=== PATIENT | female | born 1985 | race American Indian/Alaskan Native ===

== ENCOUNTER 2016-08-06 21:59 | Emergency (ER) | payer OTHER ==
[2016-08-06 23:02] LABS: Basophils % (Auto) 0.7 % (0.0-1.8); Eosinophils % (Auto) 2.7 % (0.0-4.3); Hematocrit 39.7 % (30.3-42.9); Mean Corpuscular HGB Conc 33 % (30-34); Mean Corpuscular Hemoglobin 29 pg (28-32); Mean Corpuscular Volume 89 fl (79-97); Platelet Count 244 K/mm3 (140-440); Red Blood Count 4.47 M/mm3 (3.65-5.03); Red Cell Distribution Width 13.9 % (13.2-15.2); White Blood Count 7.5 K/mm3 (4.5-11.0)
[2016-08-06 23:27] LABS: Alanine Aminotransferase 11 units/L (7-56); Albumin 4.1 g/dL (3.9-5); Albumin/Globulin Ratio 1.3 %; Alkaline Phosphatase 55 units/L (35-129); BUN/Creatinine Ratio 12.85; Blood Urea Nitrogen 9 mg/dL (7-17); Calcium 8.9 mg/dL (8.4-10.2); Carbon Dioxide 24 mmol/L (22-30); Glucose 69 mg/dL (65-100); Lipase 26 units/L (13-60); Total Protein 7.2 g/dL (6.3-8.2)
[2016-08-06 23:28] LABS: Anion Gap 17 mmol/L; Chloride 103.5 mmol/L (98-107); Sodium 140 mmol/L (137-145)
[2016-08-07] MEDS ORDERED: TYLENOL PO ONE (04:38)
[2016-08-07 09:25] LABS: Bilirubin,Urine NEG (Negative); Blood,Urine NEG (Negative); Ketones,Urine NEG (Negative); Leukocyte Esterase,Urine NEG (Negative); Nitrite,Urine NEG (Negative); Protein,Urine <15 mg/dL mg/dL (Negative); RBC,Urine < 1.0 /HPF (0.0-6.0); Urobilinogen,Urine < 2.0 mg/dL (<2.0)
[2016-08-07 09:27] LABS: WBC,Urine < 1.0 /HPF (0.0-6.0)
--- NOTE | 2016-08-07 11:53 | Emergency Department Report ---
ED Abdominal Pain HPI - General Chief Complaint: Abdominal Pain Stated Complaint: BACK AND RIB PAIN Time Seen by Provider: 08/07/16 11:21 Source: patient Mode of arrival: Ambulatory Limitations: No Limitations - History of Present Illness MD Complaint: abdominal pain -: Gradual, days(s) Location: diffuse Radiation: none Migration to: no migration Severity: mild Severity scale (0 -10): 2 Quality: aching Consistency: intermittent Improves With: nothing Worsens With: nothing Associated Symptoms: denies: nausea, vomiting, diarrhea, fever, chills, constipation, dysuria, hematemesis, hematochezia, melena, hematuria, anorexia, syncope - Related Data Home Medications Medication Instructions Recorded Confirmed Last Taken ALBUTEROL Inhaler [Proair] 2 puff IH QID PRN 02/24/13 02/19/14 Unknown Previous Rx's Medication Instructions Recorded Last Taken Type Acetaminophen/Codeine 1 tab PO Q6H PRN #21 tab 02/20/14 Unknown Rx [Acetaminophen-Codeine #3 TAB] metroNIDAZOLE [Flagyl TAB] 500 mg PO BID #14 tablet 02/20/14 Unknown Rx Allergies Allergy/AdvReac Type Severity Reaction Status Date / Time raspberry Allergy Rash Verified 02/19/14 20:46 ED Review of Systems ROS: Stated complaint: BACK AND RIB PAIN Other details as noted in HPI Other: GENERAL: No weight change, fatigue, weakness, fever, chills, or night sweats SKIN: No changes in skin or hair, no itching, no rashes, no jaundice HEAD: No trauma, headache, or visual changes EYES: No blurriness, tearing, itching, acute visual loss, conjunctival discoloration, or scleral icterus EARS: No hearing loss, tinnitus, vertigo, or earache NOSE: No rhinorrhea, stuffiness, sneezing, itching, or epistaxis MOUTH: No bleeding gums, hoarseness, sore throat, or swelling CARDIAC: No new murmur, chest pain, palpitations, dyspnea on exertion, orthopnea , PND, or edema RESPIRATORY: No shortness of breath, wheeze, cough, sputum production, hemoptysis, pneumonia, asthma, bronchitis, or emphysema GI: abdominal pain URINARY: No frequency, urgency, polyuria, dysuria, hematuria, or incontinence MUSCULOSKELETAL: No muscle weakness, joint stiffness, decrease in range of motion, redness, swelling, tenderness NEUROLOGIC: No loss of sensation, numbness, tingling, tremors, weakness, paralysis, seizures HEMATOLOGIC: No anemia, easy bruising, bleeding, petechiae, or purpura ENDOCRINE: No hot or cold intolerance, sweating, polyuria, polydipsia or, polyphagia no thyroid problems PSYCHIATRIC: No change in mood, no anxiety, no depression ED Past Medical Hx - Past Medical History Previous Medical History?: Yes Hx Asthma: Yes - Surgical History Past Surgical History?: No - Social History Smoking Status: Current Every Day Smoker Substance Use Type: Alcohol - Medications Home Medications: Home Medications Medication Instructions Recorded Confirmed Last Taken Type ALBUTEROL Inhaler [Proair] 2 puff IH QID PRN 02/24/13 02/19/14 Unknown History Acetaminophen/Codeine 1 tab PO Q6H PRN #21 tab 02/20/14 Unknown Rx [Acetaminophen-Codeine #3 TAB] metroNIDAZOLE [Flagyl TAB] 500 mg PO BID #14 tablet 02/20/14 Unknown Rx ED Physical Exam - General Limitations: No Limitations - Other Other exam information: GENERAL: Patient in no acute distress HEAD: Normocephalic, atraumatic EYES: PERRLA, EOM intact, no scleral icterus, no conjunctival hemorrhage, visual bartlett and acuity wnl, NOSE: No tenderness, discharge, sinus tenderness MOUTH: No erythema, bleeding, exudate HEART: Regular rate and rhythm, no murmur, S1-S2 are auscultated, pulses are symmetric LUNGS: No wheezing, rales, rhonchi, bilateral breath sounds ABDOMEN: Normal bowel sounds, no tenderness, no rebound, no guarding, no masses , no CVA tenderness MUSCULOSKELETAL: Normal joint range of motion, no redness, no swelling, no tenderness NEUROLOGIC: GCS 15, Alert and Oriented x3, Cranial nerves intact, normal sensation, normal strength, normal gait, no cerebellar deficit PSYCHIATRIC: No homicidal or suicidal ideation, no anxiety, no depression, no hallucinations SKIN: Skin is warm and dry, no wounds, no rashes ED Course Vital Signs 08/06/16 08/07/16 08/07/16 22:23 03:21 12:33 Temperature 98.5 F 98 F 98 F Pulse Rate 93 H 69 72 Respiratory 20 18 Rate Blood Pressure 126/80 Blood Pressure 125/84 122/78 [Right] O2 Sat by Pulse 100 100 100 Oximetry ED Medical Decision Making - Lab Data Result diagrams: 08/06/16 22:43 08/06/16 22:43 - Medical Decision Making Patient comfortable. Updated with results. Plan discharge with outpatient follow-up. Patient agrees with plan and will return if symptoms worsen. Critical care attestation.: If time is entered above; I have spent that time in minutes in the direct care of this critically ill patient, excluding procedure time. ED Disposition Clinical Impression: Abdominal pain Qualifiers: Abdominal location: unspecified location Qualified Code(s): R10.9 - Unspecified abdominal pain Disposition: TO HOME OR SELFCARE Is pt being admited?: No Condition: Stable Instructions: Abdominal Pain (ED) Referrals: PRIMARY CAREMD [Primary Care Provider] - 2-3 Days [facility] [Provider Group] - 3-5 Days COBY VALERIO MD [Staff Physician] - 3-5 Days DAYAN ALCANTARA MD [Staff Physician] - 3-5 Days MARILEE HENSLEY MD [Staff Physician] - 3-5 Days Time of Disposition: 11:52
[2016-08-07 12:34] VITALS: BP 122/78
== END 2016-08-07 12:34 | disposition home or self-care (01) ==
LOC: ED 21:59
DX: R10.84 Generalized abdominal pain (principal); J45.909 Unspecified asthma, uncomplicated; F17.200 Nicotine dependence, unspecified, uncomplicated; Z91.018 Allergy to other foods
CPT/HCPCS: 36415; 80053; 81001; 83690; 84703; 85025; 99283

== ENCOUNTER 2018-04-08 15:43 | Emergency (ER) | payer BC, OTHER ==
--- NOTE | 2018-04-08 16:04 | Emergency Department Report ---
Blank Doc - Documentation Documentation: This is a 32-year-old female that presents with sore throat. This initial assessment diagnostic orders/clinical plan/treatment(s) is/are subject to change based on patient's health status, clinical progression and re- assessment by fellow clinical providers in the ED. Further treatment and workup at subsequent clinical providers discretion. Patient/guardians urged not to elope from ED s their condition may be serious if not clinically assessed and managed. Initial orders include: 1-Patient sent to [facility] for further evaluation and treatment 2-strep swab
[2018-04-08 16:05] VITALS: BP 135/85
[2018-04-08] MEDS ORDERED: KEFLEX PO ONE (18:10)
[2018-04-08] MEDS ORDERED: TORADOL IM ONE (18:10)
--- NOTE | 2018-04-08 18:11 | Emergency Department Report ---
Abscess Boil HPI - HPI Chief Complaint: Sore Throat Stated Complaint: ARM PAIN Time Seen by Provider: 04/08/18 16:02 Duration: 5 Days Location: Upper Extremity Severity: Moderate History: Yes Pain, No Fever, No Purulent Drainage, No Numbness, No Foreign Body, No Previous History, No Insect Bite HPI: 32 YO MALE PATIENT WITH L UNDERARM ABSCESS. Home Medications: Previous Rx's Medication Instructions Recorded Last Taken Type cephALEXin [Keflex] 500 mg PO Q12HR #20 cap 04/08/18 Unknown Rx traMADol [Ultram] 50 mg PO Q6HR PRN #10 tablet 04/08/18 Unknown Rx Allergies/Adverse Reactions: Allergies Allergy/AdvReac Type Severity Reaction Status Date / Time raspberry Allergy Rash Verified 04/08/18 15:45 ED Review of Systems ROS: Stated complaint: SORE THROAT Other details as noted in HPI ED Past Medical Hx - Past Medical History Previous Medical History?: Yes Hx Asthma: Yes Additional medical history: hypothyroid. fibroids - Surgical History Past Surgical History?: No - Social History Smoking Status: Current Every Day Smoker Substance Use Type: None - Medications Home Medications: Home Medications Medication Instructions Recorded Confirmed Last Taken Type cephALEXin [Keflex] 500 mg PO Q12HR #20 cap 04/08/18 Unknown Rx traMADol [Ultram] 50 mg PO Q6HR PRN #10 tablet 04/08/18 Unknown Rx ED Abscess Boil Physical Exam - Exam General: Vital signs noted. No distress. Alert and acting appropriately. ED Course Vital Signs 04/08/18 16:03 Temperature 98.4 F Pulse Rate 103 H Respiratory 18 Rate Blood Pressure 135/85 O2 Sat by Pulse 100 Oximetry Critical care attestation.: If time is entered above; I have spent that time in minutes in the direct care of this critically ill patient, excluding procedure time. ED Disposition Clinical Impression: Abscess Disposition: DC-01 TO HOME OR SELFCARE Is pt being admited?: No Does the pt Need Aspirin: No Condition: Stable Instructions: Abscess (ED) Additional Instructions: MOTRIN OR TYLENOL FOR MILD PAIN MED ORDERED TODAY DIET AND ACTIVITY TOLERATED FOLLOW UP WITH PCP WE DISCUSSED SOAK IN TUB OF EPSOM SALTS SEVERAL TIMES A DAY TO HELP HEAL THE WOUND Prescriptions: cephALEXin [Keflex] 500 mg PO Q12HR #20 cap traMADol [Ultram] 50 mg PO Q6HR PRN #10 tablet PRN Reason: Pain Referrals: [facility] [Outside] - 3-5 Days Forms: Work/School Release Form(ED) Time of Disposition: 18:11
[2018-04-08] MEDS ORDERED: BICILLIN L-A IM ONE (18:41)
[2018-04-08] MEDS ORDERED: IBUPROFEN PO ONE (18:42)
--- NOTE | 2018-04-08 18:43 | Emergency Department Report ---
Minor Respiratory - HPI Chief Complaint: Sore Throat Stated Complaint: ARM PAIN Time Seen by Provider: 04/08/18 16:02 Duration: 5 Days Pain Location: Throat Severity: moderate Minor Respiratory: Yes Sore Throat, Yes Able to Tolerate Fluids, No Rhinorrhea, No Ear Pain, No Cough, No Sick Contacts, No Hemoptysis, No Chest Pain, No Shortness of Breath, No Fever Other History: Patient is a 32-year-old female who comes in with a sore throat. She states that she took some old amoxicillin at home and has not gotten better. Patient is ambulatory. Nontoxic. ED Review of Systems ROS: Stated complaint: ARM PAIN Other details as noted in HPI Comment: All other systems reviewed and negative Constitutional: denies: see HPI, fever Eyes: denies: eye pain ENT: as per HPI, throat pain Cardiovascular: denies: palpitations Endocrine: denies: intolerance to cold Gastrointestinal: denies: abdominal pain Genitourinary: denies: dysuria Musculoskeletal: denies: back pain Skin: denies: rash Neurological: denies: weakness Psychiatric: denies: depression Hematological/Lymphatic: denies: easy bleeding ED Past Medical Hx - Past Medical History Previous Medical History?: Yes Hx Asthma: Yes Additional medical history: hypothyroid. fibroids - Surgical History Past Surgical History?: No - Social History Smoking Status: Current Every Day Smoker Substance Use Type: None - Medications Home Medications: Home Medications Medication Instructions Recorded Confirmed Last Taken Type Amoxicillin 500 mg PO BID #20 capsule 04/08/18 Unknown Rx Minor Respiratory Exam - Exam General: Vital signs noted. No distress. Alert and acting appropriately. HEENT: Yes Pharyngeal Erythema (NO ABSCESS. TAKING PO. NO FEVER. ), Yes Moist Mucous Membranes, No Pharyngeal Exudates, No Rhinorrhea, No Conjuctival Injection, No Frontal Tenderness, No Maxillary Tenderness Ear: Neither TM Bulge, Neither TM Erythema, Neither EAC Pain, Neither EAC Discharge Neck: Yes Supple, No Adenopathy Lungs: Yes Good Air Exchange, No Wheezes, No Ronchi, No Stridor, No Cough, No Labored Respirations, No Retractions, No Use of Accessory Muscles, No Other Abnormal Lung Sounds Heart: Yes Regular, No Murmur Abdomen: Yes Normal Bowel Sounds, No Tenderness, No Peritoneal Signs Skin: No Rash, No Edema Neurologic: Alert and oriented, no deficits. Musculoskeletal: Unremarkable. ED Course Vital Signs 04/08/18 16:03 Temperature 98.4 F Pulse Rate 103 H Respiratory 18 Rate Blood Pressure 135/85 O2 Sat by Pulse 100 Oximetry ED Medical Decision Making - Medical Decision Making Labs 04/08/18 16:10 Group A Strep Rapid Positive A Patient has been educated on not taking oral antibiotics. She is also been educated on taking antibiotics for the appropriate period of time. Given the fact that she was taking old amoxicillin I have medicated her with an IM injection of penicillin today. She will go home with oral amoxicillin for 10 days. Critical care attestation.: If time is entered above; I have spent that time in minutes in the direct care of this critically ill patient, excluding procedure time. ED Disposition Clinical Impression: Abscess, Strep pharyngitis Disposition: - TO HOME OR SELFCARE Is pt being admited?: No Does the pt Need Aspirin: No Condition: Stable Instructions: Strep Throat (ED) Additional Instructions: MOTRIN OR TYLENOL FOR MILD PAIN MED ORDERED TODAY DIET AND ACTIVITY TOLERATED FOLLOW UP WITH PCP Prescriptions: Amoxicillin 500 mg PO BID #20 capsule Referrals: [facility] [Outside] - 3-5 Days Forms: Work/School Release Form(ED) Time of Disposition: 18:42
== END 2018-04-08 19:25 | disposition home or self-care (01) ==
LOC: ED 15:43
DX: J02.0 Streptococcal pharyngitis (principal); J45.909 Unspecified asthma, uncomplicated; E03.9 Hypothyroidism, unspecified; F17.200 Nicotine dependence, unspecified, uncomplicated
CPT/HCPCS: 87430; 96372; 99283; J0561